=== PATIENT | male | born 1975 | race African-American/Black ===

== ENCOUNTER 2017-07-28 17:37 | Emergency (ER) | payer MEDICAID, SELFPAY ==
[2017-07-28 17:39] VITALS: BP 147/94; PULSE 73; RESP 18; TEMP 36.3; O2SAT 99; BMI 33.3
--- NOTE | 2017-07-28 18:27 | ED.VISSUMM ---
- ER Visit Summary Date of Service: 07/28/17 Chief Complaint: Left-sided low back pain and numbness located over the left greater trochanteric region and lateral side left knee History of Present Illness: The patient is a 42 M history of back pain for approximate 20 years. He presents because of increased pain. He states he does a lot of bending with the type of work he does. He denies any bowel bladder dysfunction. He denies saddle paresthesia or anesthesia. He denies any radicular pain or sciatica. He denies foot drop. He denies difficulty going up or down steps. He denies any fever, chills night sweats. He has no history of IV drug use. No recent new tattoos. Physical Examination: Appears uncomfortable. He is thin. Vital signs remarkable for an elevated blood pressure 147/94. HEENT is grossly unremarkable. Heart is regular without murmur, gallop or rub. S1 and S2 are normal. Lungs are clear to auscultation with good movement of air bilaterally. Abdomen is soft nontender. He has reproducible left lower back pain. Straight leg test and crossover test negative. Patella and ankle reflexes are plus minus and symmetric. EHL is intact. There is no clonus or Babinski sign noted. He has distal palpable pulses. Gait was observed. Does have a slight limp. He is able to walk on his heels and toes. There is no foot drop. He is able to squat but complains of increased pain left lower back he does have normal perianal sensation. Test Results: None are indicated Emergency Department Course and Treatment: Since she has a ride home he was given a dose of Naprosyn and [place] in the department. Treatment Plan: Home-going instructions Disposition: Discharge to home Impression: Acute left lower back pain of muscular etiology initial encounter This note was generated with Babelway dictation software. It may contain incorrect words, spelling, and punctuation that were not noted in review of the chart prior to signing ED Disposition - Plan for ED Patient: Disposition: Home or Assisted Living Chief Complaint: Back Instructions: ED Sprain Strain Lumbar Prescriptions: Hydrocodone Bitart/Apap 5-325 [[place] 5MG-325MG] 1 tablet PO Q6H PRN PRN 3 Days #10 tablet PRN Reason: Pain Naproxen [Naprosyn] 500 mg PO BID #10 tablet Referrals: Care Physician,No Primary [Primary Care Provider] - Waqas Hylton III, MD [STAFF PHYSICIAN] - 1 Week if not improving
--- NOTE | 2017-07-28 18:36 | ED.DCSUM_ITS ---
- ER Visit Summary Date of Service: 07/28/17 Chief Complaint: Left-sided low back pain and numbness located over the left greater trochanteric region and lateral side left knee History of Present Illness: The patient is a 42 M history of back pain for approximate 20 years. He presents because of increased pain. He states he does a lot of bending with the type of work he does. He denies any bowel bladder dysfunction. He denies saddle paresthesia or anesthesia. He denies any radicular pain or sciatica. He denies foot drop. He denies difficulty going up or down steps. He denies any fever, chills night sweats. He has no history of IV drug use. No recent new tattoos. Physical Examination: Appears uncomfortable. He is thin. Vital signs remarkable for an elevated blood pressure 147/94. HEENT is grossly unremarkable. Heart is regular without murmur, gallop or rub. S1 and S2 are normal. Lungs are clear to auscultation with good movement of air bilaterally. Abdomen is soft nontender. He has reproducible left lower back pain. Straight leg test and crossover test negative. Patella and ankle reflexes are plus minus and symmetric. EHL is intact. There is no clonus or Babinski sign noted. He has distal palpable pulses. Gait was observed. Does have a slight limp. He is able to walk on his heels and toes. There is no foot drop. He is able to squat but complains of increased pain left lower back he does have normal perianal sensation. Test Results: None are indicated Emergency Department Course and Treatment: Since she has a ride home he was given a dose of Naprosyn and [place] in the department. Treatment Plan: Home-going instructions Disposition: Discharge to home Impression: Acute left lower back pain of muscular etiology initial encounter This note was generated with [employer] dictation software. It may contain incorrect words, spelling, and punctuation that were not noted in review of the chart prior to signing ED Disposition - Plan for ED Patient: Disposition: Home or Assisted Living Chief Complaint: Back Instructions: ED Sprain Strain Lumbar Prescriptions: Hydrocodone Bitart/Apap 5-325 [[place] 5MG-325MG] 1 tablet PO Q6H PRN PRN 3 Days # 10 tablet PRN Reason: Pain Naproxen [Naprosyn] 500 mg PO BID #10 tablet Referrals: Care Physician,No Primary [Primary Care Provider] - Waqas Hylton III, MD [STAFF PHYSICIAN] - 1 Week if not improving
[2017-07-28] MEDS: HYDROcodone Bitartrate/Apap 5/325 Tablet PO (18:45)
[2017-07-28] MEDS: Naproxen 250 MG Tablet 500 MG PO (18:45)
--- NOTE | 2017-07-28 18:50 | ED.RN ---
Verbal and written d/c instructions given. All questions answered. Skin w/d. ABCs intact. Gait slow and steady out of department.
== END 2017-07-28 18:52 | disposition home or self-care (01) ==
PROVIDERS: Emergency Provider Emergency Medicine
DX: M54.5 Low back pain (principal)
CPT/HCPCS: 99283

== ENCOUNTER 2018-05-20 07:40 | Emergency (ER) | payer SELFPAY ==
[2018-05-20 07:40] VITALS: BP 98/63; PULSE 105; RESP 16; TEMP 36.6; O2SAT 100; BMI 34.0
--- NOTE | 2018-05-20 07:56 | ED.VISSUMM ---
- ER Visit Summary Date of Service: 05/20/18 Chief Complaint: [Rash on hands] History of Present Illness: The patient is a 43 M presents to the emergency department complaint of a rash on his hands that started about 3 weeks ago. Patient has not had a rash like this before. Patient describes itching and skin peeling. Patient feels like worms are crawling on his skin. Patient states that the itching is worse at night. Patient does work with pain frequently and aluminum. Denies any fever or recent illness. He denies any new medications. ] Physical Examination: [HEENT-PERRLA, EOMI. Cranial nerves II through XII grossly intact. TMs clear. Mucous membranes moist. No adenopathy. Cardiovascular-regular rate and rhythm without murmur or ectopy Lungs-clear to auscultation, chest wall stable without crepitus or subcu emphysema Abdomen-normoactive bowel sounds, soft, nontender, no rebound or rigidity, no peritoneal signs. Extremities-intact ?4, normal range of motion, normal pulses, atraumatic. Hands-patient has dry excoriated skin on the palms of both hands as well as the dorsum of the digits. Skin is cracked and peeling. No evidence of cellulitis. No vesicles or petechiae noted.] Test Results: None indicated [] Emergency Department Course and Treatment: [] Treatment Plan: [Patient will be written a prescription for a topical steroid and given referral to dermatology for follow-up. I suspect patient may have either contact dermatitis or dyshidrotic eczema. Patient advised to keep his hands moisturized and advised to wear gloves when working with chemicals.] Disposition: Discharged home in stable condition] Impression: [Hand dermatitis-contact dermatitis versus dyshidrotic eczema] This note was generated with Presentigo dictation software. It may contain incorrect words, spelling, and punctuation that were not noted in review of the chart prior to signing ED Disposition - Plan for ED Patient: Chief Complaint: Upper Extremity Injury Referrals: Care Physician,No Primary [Primary Care Provider] -
[2018-05-20 07:59] VITALS: PULSE 105; RESP 16; TEMP 36.6
--- NOTE | 2018-05-20 07:59 | ED.DEP ---
ED Disposition - Plan for ED Patient: Chief Complaint: Upper Extremity Injury Instructions: ED Dermatitis Contact, ED Dermatitis Atopic Eczema Prescriptions: Hydrocortisone 2.5% Crm [Hytone] 1 applic TOPICAL BID PRN #1 tube Referrals: Care Physician,No Primary [Primary Care Provider] - Mansoor Santoro MD [STAFF PHYSICIAN] - 5-7 Days
[2018-05-20 08:10] VITALS: TEMP 36.6
--- OUTSIDE RECORDS SUMMARY | 2018-07-06 03:02 | XMS RPT_ITS ---
:1975 Author Organization [facility] Care Team Providers Name Role Phone Primay Care Physicia, No Primary Care Unavailable Teddy Neal Attending Unavailable Peter, Anish Attending Unavailable Primay Care Physicia, No Primary Care Unavailable PROBLEMS PROBLEMS DATE TYPE CONDITION / CODE ATTENDING STATUS SOURCE 12/24/2017 Unknown M54.5 - Low back Peter, Anish Active Rogelio pain / Community M54.5(ICD-10) Hospital Repository PROCEDURES PROCEDURES No Procedure Records FoundRESULTS RESULTS DISCHARGE INSTRUCTION Observed: 05/20/2018 Status: F Source: ROGELIO 8:05 AM [facility] REPOSITORY [facility] Medical Records Department [address] [place] [address] Discharge Instruction 05/20/18 0759 MR#: [id number] Acct: [id number] Name: DEBORAH CIFUENTES Rep #: [id number] : 1975 43 From: Teddy Neal DO PCP: Care Physician, No Primary Status: REG ER ED Disposition - Plan for ED Patient: Chief Complaint: Upper Extremity Injury Instructions: ED Dermatitis Contact, ED Dermatitis Atopic Eczema Prescriptions: Hydrocortisone 2.5% Crm [Hytone] 1 applic TOPICAL BID PRN #1 tube Referrals: Care Physician,No Primary [Primary Care Provider] - Mansoor Santoro MD [STAFF PHYSICIAN] - 5-7 Days What to do if you have Problems For any increased pain, shortness of breath, bleeding, nausea or vomiting, chest pain, or any unexpected problems, contact your Primary Care Provider. Call [facility] ([phone]) or report to the closest Emergency Room. Call 911 if necessary. 05/20/18 0805 <Electronically signed by Teddy Neal DO> Date Teddy Neal DO Cosigner Signature (If Indicated): Date CC: No Primary Care Physician EMERGENCY DEPARTMENT Observed: 05/20/2018 Status: F Source: LYNN SUMMARY 7:59 AM [facility] REPOSITORY [facility] Medical Records Department [address] [place] [address] Emergency Department Summary 05/20/18 0756 MR#: [id number] Acct: [id number] Name: DEBORAH CIFUENTES Rep #: [id number] : 1975 43 From: Teddy Neal DO PCP: Care Physician, No Primary Status: PRE ER - ER Visit Summary Date of Service: 05/20/18 Chief Complaint: [Rash on hands] History of Present Illness: The patient is a 43 M presents to the emergency department complaint of a rash on his hands that started about 3 weeks ago. Patient has not had a rash like this before. Patient describes itching and skin peeling. Patient feels like worms are crawling on his skin. Patient states that the itching is worse at night. Patient does work with pain frequently and aluminum. Denies any fever or recent illness. He denies any new medications. ] Physical Examination: [HEENT-PERRLA, EOMI. Cranial nerves II through XII grossly intact. TMs clear. Mucous membranes moist. No adenopathy. Cardiovascular-regular rate and rhythm without murmur or ectopy Lungs-clear to auscultation, chest wall stable without crepitus or subcu emphysema Abdomen-normoactive bowel sounds, soft, nontender, no rebound or rigidity, no peritoneal signs. Extremities-intact 4, normal range of motion, normal pulses, atraumatic. Hands-patient has dry excoriated skin on the palms of both hands as well as the dorsum of the digits. Skin is cracked and peeling. No evidence of cellulitis. No vesicles or petechiae noted.] Test Results: None indicated [] Emergency Department Course and Treatment: [] Treatment Plan: [Patient will be written a prescription for a topical steroid and given referral to dermatology for follow-up. I suspect patient may have either contact dermatitis or dyshidrotic eczema. Patient advised to keep his hands moisturized and advised to wear gloves when working with chemicals.] Disposition: Discharged home in stable condition] Impression: [Hand dermatitis-contact dermatitis versus dyshidrotic eczema] This note was generated with Billtrustation software. It may contain incorrect words, spelling, and punctuation that were not noted in review of the chart prior to signing ED Disposition - Plan for ED Patient: Chief Complaint: Upper Extremity Injury Referrals: Care Physician,No Primary [Primary Care Provider] - What to do if you have Problems For any increased pain, shortness of breath, bleeding, nausea or vomiting, chest pain, or any unexpected problems, contact your Primary Care Provider. Call [email or web address] ([phone]) or report to the closest Emergency Room. Call 911 if necessary. 05/20/18 0759 <Electronically signed by Teddy Neal DO> Date Teddy Neal DO Cosigner Signature (If Indicated): Date CC: No Primary Care Physician EMERGENCY DEPARTMENT Observed: 07/28/2017 Status: F Source: LYNN SUMMARY 6:36 PM [facility] REPOSITORY [facility] Medical Records Department [address] [place] [address] Emergency Department Summary 07/28/17 1827 MR#: [id number] Acct: [id number] Name: DEBORAH CIFUENTES Rep #: [id number] : 1975 42 From: Anish Peter MD PCP: Care Physician, No Primary Status: PRE ER - ER Visit Summary Date of Service: 07/28/17 Chief Complaint: Left-sided low back pain and numbness located over the left greater trochanteric region and lateral side left knee History of Present Illness: The patient is a 42 M history of back pain for approximate 20 years. He presents because of increased pain. He states he does a lot of bending with the type of work he does. He denies any bowel bladder dysfunction. He denies saddle paresthesia or anesthesia. He denies any radicular pain or sciatica. He denies foot drop. He denies difficulty going up or down steps. He denies any fever, chills night sweats. He has no history of IV drug use. No recent new tattoos. Physical Examination: Appears uncomfortable. He is thin. Vital signs remarkable for an elevated blood pressure 147/94. HEENT is grossly unremarkable. Heart is regular without murmur, gallop or rub. S1 and S2 are normal. Lungs are clear to auscultation with good movement of air bilaterally. Abdomen is soft nontender. He has reproducible left lower back pain. Straight leg test and crossover test negative. Patella and ankle reflexes are plus minus and symmetric. EHL is intact. There is no clonus or Babinski sign noted. He has distal palpable pulses. Gait was observed. Does have a slight limp. He is able to walk on his heels and toes. There is no foot drop. He is able to squat but complains of increased pain left lower back he does have normal perianal sensation. Test Results: None are indicated Emergency Department Course and Treatment: Since she has a ride home he was given a dose of Naprosyn and [place] in the department. Treatment Plan: Home-going instructions Disposition: Discharge to home Impression: Acute left lower back pain of muscular etiology initial encounter This note was generated with Hackermeter dictation software. It may contain incorrect words, spelling, and punctuation that were not noted in review of the chart prior to signing ED Disposition - Plan for ED Patient: Disposition: Home or Assisted Living Chief Complaint: Back Instructions: ED Sprain Strain Lumbar Prescriptions: Hydrocodone Bitart/Apap 5-325 [[place] 5MG-325MG] 1 tablet PO Q6H PRN PRN 3 Days #10 tablet PRN Reason: Pain Naproxen [Naprosyn] 500 mg PO BID #10 tablet Referrals: Care Physician,No Primary [Primary Care Provider] - Waqas Hylton III, MD [STAFF PHYSICIAN] - 1 Week if not improving What to do if you have Problems For any increased pain, shortness of breath, bleeding, nausea or vomiting, chest pain, or any unexpected problems, contact your Primary Care Provider. Call [facility] ([phone]) or report to the closest Emergency Room. Call 911 if necessary. 07/28/17 1836 <Electronically signed by Anish Peter MD> Date Anish Peter MD Cosigner Signature (If Indicated): Date CC: No Primary Care Physician; Waqas Hylton III, MD ALLERGIES ALLERGIES DATE TYPE / CODE NAME / CODE REACTION SEVERITY SOURCE 05/20/2018 Drug wool/[id number] Itching Unknown [facility] Allergy/4160 02(RXNORM) [place] [address](SNOMED Repository CT) 07/28/[address] [facility] Allergy/4160 Allergies/F00 [place] [address](SNOMED [id number](RXNOR Repository CT) M) ENCOUNTERS ENCOUNTERS ADMIT/DISCHARGE ACCOUNT ADMITTING ENCOUNTER LOCATION SOURCE NUMBER CLASS 05/20/2018/ [id number] Emergency [address] ing:ED Repository 07/28/2017/ [id number] Emergency [address] ing:ED Repository PAYERS PAYERS ENCOUNTER GUARANTOR PAYER SUBSCRIBER SOURCE 05/20/2018 DEBORAH Carreno Primary NOT GIVENUNK Rogelio LAMAS SPINK Insurance:SELF PAY [facility] [id number]: ([phone] Number: Effective Repository [phone] (HP) Date:2018-05-20 07/28/2017 DEBORAH LAMAS Primary DEBORAH Rogelio KNAPPK [facility], Insurance:LENIN LOPEZB: Counts include 234 beds at the [facility] [address]Oex: [facility] [id number] Hospital PLANPolicy Number: Repository (HP) [id number] Date:[id number], [place] [address]JW: 07/28/2017 Secondary NOT GIVENUNK Rogelio Insurance:SELF PAY [facility] Number: Effective Repository Date:2017-07-28
== END 2018-05-20 08:11 | disposition home or self-care (01) ==
PROVIDERS: Emergency Provider Emergency Medicine
DX: L30.9 Dermatitis, unspecified (principal)
CPT/HCPCS: 99282

== ENCOUNTER 2018-08-18 22:32 | Emergency (ER) | payer SELFPAY ==
[2018-08-18 22:34] VITALS: BP 150/82; PULSE 107; RESP 18; TEMP 36.8; O2SAT 97; BMI 32.5
--- NOTE | 2018-08-18 22:38 | ED.RN ---
pt mumbling in triage. stating he's just trying to help himself and get out of [place]. pt admits to paranoia. pt thinks people are talking bad about him and pt assures me it's wrong information.
--- NOTE | 2018-08-18 23:54 | ED.RN ---
PT DENIES MEDICAL COMPLAINTS, STATES HE IS HERE FOR A DRINK OF WATER AND TO HANG OUT WHERE THE LIGHTS ARE BRIGHT. NO SECONDARY COMPLETED, SINCE NO HEALTH COMPLAINTS. PT STATES HE WILL WAIT AND SPEAK TO A MD TOO.
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
== END 2018-08-19 00:34 | disposition home or self-care (01) ==
LOC: ED 08-19 00:33
PROVIDERS: Emergency Provider Emergency Medicine
DX: F22 Delusional disorders (principal); Z72.0 Tobacco use
CPT/HCPCS: 99282

== ENCOUNTER 2019-04-21 18:17 | Emergency (ER) | payer MEDICAID, SELFPAY ==
[2019-04-21 18:19] VITALS: BP 173/118; PULSE 136; RESP 18; TEMP 37.1; O2SAT 98; BMI 35.4
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
--- NOTE | 2019-04-21 18:48 | ED.DEP ---
ED Disposition - Plan for ED Patient: Instructions: ED Dyspnea, SCHIZOPHRENIA, Paranoid Type Referrals: Care Physician,No Primary [Primary Care Provider] - Emeterio Peter DO [STAFF PHYSICIAN] - 3-5 Days Counseling,Center [GROUP OF PHYSICIANS] - 1-2 Days if not improving
== END 2019-04-21 19:01 | disposition home or self-care (01) ==
PROVIDERS: Emergency Provider Emergency Medicine
DX: R06.00 Dyspnea, unspecified (principal); F22 Delusional disorders; J45.909 Unspecified asthma, uncomplicated; Z72.0 Tobacco use
CPT/HCPCS: 99284

== ENCOUNTER 2019-09-05 22:09 | Emergency (ER) | payer SELFPAY ==
[2019-09-05 22:10] VITALS: BP 106/84; PULSE 144; PULSE 146; RESP 22; RESP 26; TEMP 37; O2SAT 98; BMI 29.0
[2019-09-05 22:15] VITALS: O2SAT 98
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
--- NOTE | 2019-09-05 22:37 | ED.RN ---
NO OLD EKGS IN MUSE
[2019-09-05 22:51] LABS: Absolute Lymphocyte Count 4.63 X10^3/uL (0.83-4.51); Absolute Neutrophil Count 3.5 X10^3/uL (2.0-7.7); Basophil# 0.04 X10^3/uL; Basophil% 0.4 % (0-1); Eosinophil# 0.01 X10^3/uL; Eosinophils% 0.1 % (0-5); Hematocrit 46.9 % (40-54); Hemoglobin 15.2 g/dL (13.0-16.5); Lymphocyte # 4.63 X10^3/ul (4.0); Lymphocyte % 50.9 % (19-41); Mean Corp Hgb Conc 32.4 g/dL (32-36); Mean Corpuscular Hgb 32.5 pg (27.0-32.0); Mean Corpuscular Volume 100.4 fL (80-94); Mean Platelet Vol. 8.9 fl (6.2-12.0); Monocyte# 0.89 X10^3/uL; Monocyte% 9.8 % (0-10); NRBC Flagged by Analyzer 0 % (0-5); Neutrophil % 38.5 % (47-70); Platelet Count 453 K/mm3 (150-450); RBC Distribution Width CV 12.6 % (11.6-14.6); Red Blood Count 4.67 M/mm3 (4.6-6.2); White Blood Count 9.1 K/mm3 (4.4-11.0)
[2019-09-05] MEDS: 0.9% Normal Saline 1,000 ML 1000 ML IV (22:52)
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
[2019-09-05 23:04] LABS: Anion Gap 25 (5-15); BUN 18 mg/dL (7-18); BUN/Creat Ratio 7.9 RATIO (10-20); Calcium,Total 10.3 mg/dL (8.5-10.1); Chloride 103 mmol/L (98-107); Creatinine, Serum 2.28 mg/dL (0.70-1.30); EST Glomerular Filtration Rate 33 mL/min (>60); Est Glom Filt Rate - Afr Amer 40 mL/min (>60); Estimated Creatinine Clearance 46.73 ml/min; Glucose 135 mg/dL (74-106); Potassium 4.4 mmol/L (3.5-5.1); Sodium Level 139 mmol/L (136-145); Thyroid Stim Hormone (TSH) 1.35 uIU/mL (0.358-3.74)
[2019-09-05] MEDS: Ziprasidone IM 20 MG/ML VIAL IM (23:40)
[2019-09-05 23:49] LABS: Alcohol, Blood (Medical)-Serum < 3.0 mg/dL
[2019-09-06] MEDS: 0.9% Normal Saline 1,000 ML 1000 ML IV ×2 (00:04→00:27)
[2019-09-06 00:06] VITALS: BP 123/84; PULSE 113; RESP 18; O2SAT 98
[2019-09-06 00:33] LABS: AST(SGOT) 22 U/L (15-37); Alanine Aminotransfer ALT/SGPT 41 U/L (16-61); Albumin, Serum 4.4 g/dL (3.2-5.0); Alkaline Phosphatase 91 U/L (45-117); Bilirubin, Direct 0.11 mg/dL (0.00-0.30); Globulin 4.5 g/dL (2.2-4.2); Protein, Total 8.9 g/dL (6.4-8.2)
[2019-09-06 00:34] LABS: Amphetamine Urine VISTA POSITIVE (<1000 ng/mL); Barbiturate Urine VISTA NEGATIVE (< 200 ng/mL); Benzodiazepine Urine VISTA NEGATIVE (< 200 ng/mL); Cocaine Urine VISTA NEGATIVE (< 300 ng/mL); Ecstacy Urine VISTA POSITIVE (< 500 ng/mL); Methadone Urine VISTA NEGATIVE (< 300 ng/mL); PCP Urine VISTA NEGATIVE (< 25 ng/mL); THC Urine VISTA NEGATIVE (< 50 ng/mL); Vista UDS pH Range 5
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
[2019-09-06 01:59] LABS: Anion Gap 9 (5-15); BUN 18 mg/dL (7-18); BUN/Creat Ratio 11.9 RATIO (10-20); Chloride 110 mmol/L (98-107); Creatinine, Serum 1.51 mg/dL (0.70-1.30); EST Glomerular Filtration Rate 54 mL/min (>60); Est Glom Filt Rate - Afr Amer 65 mL/min (>60); Estimated Creatinine Clearance 70.55 ml/min; Glucose 93 mg/dL (74-106); Potassium 3.5 mmol/L (3.5-5.1); Sodium Level 141 mmol/L (136-145)
[2019-09-06 02:27] VITALS: BP 133/88; PULSE 85; RESP 18; O2SAT 100
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
== END 2019-09-06 02:32 ==
LOC: ED 22:21
PROVIDERS: Emergency Provider Emergency Medicine
DX: F15.10 Other stimulant abuse, uncomplicated (principal); R00.0 Tachycardia, unspecified; N28.9 Disorder of kidney and ureter, unspecified; Z72.0 Tobacco use
CPT/HCPCS: 36415; 71045; 80048; 80076; 80307; 80320; 84443; 84484; 85025; 96360; 96372; 99285; J7030; P9612; A4216; G0480; J3486